=== PATIENT | male | born 1975 | race Two or more races ===

== ENCOUNTER 2024-10-12 14:43 | Emergency (ER) | payer MEDICAID, OTHER ==
[~2024-10-12] VITALS: Ht 167.6 cm; Wt 98.9 kg
[2024-10-12] MEDS ORDERED: KETOROLAC TROMETHAMINE 15 MG/ML VIAL ONE (15:19)
[2024-10-12] MEDS: KETOROLAC TROMETHAMINE 15 MG/ML VIAL IM ONE (15:25)
[2024-10-12] MEDS ORDERED: LIDO30AD10 TP (16:32)
[2024-10-12 17:41] VITALS: BP 124/74; O2SAT 98
== END 2024-10-12 17:42 | disposition home or self-care (01) ==
LOC: ER 14:49
DX: M25.512 Pain in left shoulder (principal); M25.532 Pain in left wrist; M25.522 Pain in left elbow; I10 Essential (primary) hypertension; W18.39XA Other fall on same level, initial encounter; Y93.89 Activity, other specified; Y92.89 Other specified places as the place of occurrence of the external cause; Y99.8 Other external cause status
CPT/HCPCS: 99284; 96372; 73080; 73030; 73110; J1885